=== PATIENT | male | born 1995 | race American Indian/Alaskan Native ===

== ENCOUNTER 2016-11-06 23:18 | Emergency (ER) | payer BC ==
[2016-11-07 00:35] LABS: Basophils % (Auto) 0.4 % (0.0-1.8); Eosinophils % (Auto) 1.9 % (0.0-4.3); Hematocrit 45.8 % (35.5-45.6); Hemoglobin 15.5 gm/dl (11.8-15.2); Mean Corpuscular HGB Conc 34 % (32-34); Mean Corpuscular Hemoglobin 30 pg (28-32); Mean Corpuscular Volume 88 fl (84-94); Platelet Count 276 K/mm3 (140-440); Red Blood Count 5.18 M/mm3 (3.65-5.03); Red Cell Distribution Width 13.1 % (13.2-15.2); White Blood Count 5.2 K/mm3 (4.5-11.0)
[2016-11-07 01:10] LABS: Alanine Aminotransferase 16 units/L (7-56); Albumin 4.6 g/dL (3.9-5); Albumin/Globulin Ratio 1.6 %; Alkaline Phosphatase 66 units/L (35-129); Anion Gap 10 mmol/L; BUN/Creatinine Ratio 12.22; Blood Urea Nitrogen 11 mg/dL (9-20); Calcium 9.3 mg/dL (8.4-10.2); Carbon Dioxide 32 mmol/L (22-30); Chloride 100.6 mmol/L (98-107); Glucose 80 mg/dL (75-100); Lipase 17 units/L (13-60); Potassium 3.5 mmol/L (3.6-5.0); Sodium 139 mmol/L (137-145); Total Protein 7.4 g/dL (6.3-8.2)
[2016-11-07 03:42] LABS: Bilirubin,Urine Negative (Negative); Blood,Urine Negative (Negative); Ketones,Urine Negative (Negative); Leukocyte Esterase,Urine Negative (Negative); Nitrite,Urine Negative (Negative); Urobilinogen,Urine 0.2 mg/dL (<2.0)
[2016-11-07 07:21] VITALS: BP 129/69
[2016-11-07] MEDS ORDERED: PEPCID PO ONE (07:34)
[2016-11-07] MEDS ORDERED: BENTYL IM ONE (07:34)
[2016-11-07] MEDS ORDERED: ZOFRAN ODT PO ONE (07:35)
--- NOTE | 2016-11-07 07:46 | Emergency Department Report ---
ED Abdominal Pain HPI - General Chief Complaint: Abdominal Pain Stated Complaint: NAUSEA/DIFFICULTY SWALLOWING Time Seen by Provider: 11/07/16 07:25 Source: patient Mode of arrival: Ambulatory Limitations: No Limitations - History of Present Illness Initial Comments: 21-year-old male with no past medical history is presented to the emergency department complaining of abdominal pain. Onset of pain started approximately 2 months prior. Patient states pain is crampy, intermittent, no relaxing or worsening factors. Patient states pain is located in the right upper quadrant and is nonradiating. Patient says occasionally when he follow swallows he feels like he is having a hard time. Patient denies the sensation of food getting stuck in his throat. Patient denies halitosis. Patient denies chest pain. Patient states he is able to keep liquids and foods down without emesis. MD Complaint: abdominal pain -: Gradual, month(s) (2) Location: RUQ Radiation: none Migration to: no migration Severity: moderate Severity scale (0 -10): 6 Quality: cramping Consistency: intermittent Improves With: nothing Worsens With: nothing Associated Symptoms: nausea, anorexia. denies: vomiting, constipation, melena, hematuria - Related Data Previous Rx's Medication Instructions Recorded Last Taken Type Dicyclomine [Bentyl] 20 mg PO QID #20 bottle 11/07/16 Unknown Rx Famotidine [Pepcid] 20 mg PO BID #30 tablet 11/07/16 Unknown Rx Allergies Allergy/AdvReac Type Severity Reaction Status Date / Time No Known Allergies Allergy Verified 11/06/16 23:45 ED Review of Systems ROS: Stated complaint: NAUSEA/DIFFICULTY SWALLOWING Other details as noted in HPI Constitutional: denies: chills, fever Eyes: denies: eye pain, eye discharge, vision change ENT: denies: ear pain, throat pain Respiratory: denies: cough, shortness of breath, wheezing Cardiovascular: denies: chest pain, palpitations Endocrine: no symptoms reported Gastrointestinal: abdominal pain, nausea. denies: vomiting, diarrhea, constipation, hematemesis, hematochezia Genitourinary: denies: urgency, dysuria Musculoskeletal: denies: back pain, joint swelling, arthralgia Skin: denies: rash, lesions Neurological: denies: headache, weakness, paresthesias Psychiatric: denies: anxiety, depression Hematological/Lymphatic: denies: easy bleeding, easy bruising ED Past Medical Hx - Past Medical History Previous Medical History?: No - Surgical History Past Surgical History?: No - Social History Smoking Status: Former Smoker Substance Use Type: None - Medications Home Medications: Home Medications Medication Instructions Recorded Confirmed Last Taken Type Dicyclomine [Bentyl] 20 mg PO QID #20 bottle 11/07/16 Unknown Rx Famotidine [Pepcid] 20 mg PO BID #30 tablet 11/07/16 Unknown Rx ED Physical Exam - General Limitations: No Limitations General appearance: alert, in no apparent distress - Head Head exam: Present: atraumatic, normocephalic - Eye Eye exam: Present: normal appearance - ENT ENT exam: Present: mucous membranes moist - Neck Neck exam: Present: normal inspection - Respiratory Respiratory exam: Present: normal lung sounds bilaterally. Absent: respiratory distress - Cardiovascular Cardiovascular Exam: Present: regular rate, normal rhythm. Absent: systolic murmur, diastolic murmur, rubs, gallop - GI/Abdominal GI/Abdominal exam: Present: soft, normal bowel sounds, other (negative [place] sign ). Absent: distended, tenderness, guarding, rebound (abdomen soft), hyperactive bowel sounds, hypoactive bowel sounds, organomegaly, mass, bruit, pulsatile mass, hernia - Rectal Rectal exam: Present: deferred - Extremities Exam Extremities exam: Present: normal inspection - Back Exam Back exam: Present: normal inspection - Neurological Exam Neurological exam: Present: alert, oriented X3 - Psychiatric Psychiatric exam: Present: normal affect, normal mood - Skin Skin exam: Present: warm, dry, intact, normal color. Absent: rash ED Course Vital Signs 11/06/16 11/07/16 11/07/16 23:45 03:53 07:20 Temperature 98.4 F 98.0 F 98.4 F Pulse Rate 72 50 L 59 L Respiratory 20 18 16 Rate Blood Pressure 136/80 130/87 Blood Pressure 129/69 [Left] O2 Sat by Pulse 99 100 99 Oximetry 11/07/16 07:21 Temperature Pulse Rate Respiratory 16 Rate Blood Pressure Blood Pressure [Left] O2 Sat by Pulse 99 Oximetry - Reevaluation(s) Reevaluation #1: 11/07/16 07:56 Patient resting comfortably, he has asked the nursed to be discharged home. ED Medical Decision Making - Lab Data Result diagrams: 11/07/16 00:09 11/07/16 00:09 - Medical Decision Making 21-year-old male presenting to the ED complaining of right upper quadrant abdominal pain x 2 months. Patient has no: fever, no white count, no [place] sign therefore have low suspicion for acute cholecystitis. The differential was gallstones however patient is refusing the ultrasound stating he has 2 young children with him and is awaiting for "too long in the ER" and is requesting discharge home. I have given patient return precautions and is verbalizes understanding. He states he will follow-up with the primary care recommendations and outpt PCP, GI follow-up.. - Differential Diagnosis PNA, APPENDICITIS, diveriticulum Critical care attestation.: If time is entered above; I have spent that time in minutes in the direct care of this critically ill patient, excluding procedure time. ED Disposition Clinical Impression: Abdominal pain Disposition: DC-01 TO HOME OR SELFCARE Is pt being admited?: No Does the pt Need Aspirin: No Condition: Stable Instructions: Acute Abdominal Pain (ED) Prescriptions: Dicyclomine [Bentyl] 20 mg PO QID #20 bottle Famotidine [Pepcid] 20 mg PO BID #30 tablet Referrals: PRIMARY CARE, [Primary Care Provider] - 3-5 Days Time of Disposition: 07:59
== END 2016-11-07 08:07 | disposition home or self-care (01) ==
LOC: EDBD → ED 23:18
DX: R10.11 Right upper quadrant pain (principal); Z87.891 Personal history of nicotine dependence
CPT/HCPCS: 36415; 80053; 81001; 83690; 85025; 99283; J0500; Q0162